=== PATIENT | female | born 1990 | race Hispanic/Latino ===

== ENCOUNTER 2024-06-08 14:16 | Inpatient (IN) | payer MEDICAID, OTHER ==
[2024-06-08 16:15] LABS: Bilirubin Neg (Negative); Blood, Urine Negative (Negative); Clarity Clear (Clear); Glucose, Urine (Dipstick) Normal (Negative); Ketone, Urine Negative (Negative); Leukocyte Negative (Negative); Nitrite Negative (Negative); Protein, Urine (Dipstick) Negative (Neg-Trace); Urobilinogen Normal mg/dL (Less than 2); pH, Urine 6.5 (5.0-9.0)
[2024-06-08 16:35] LABS: Bacteria/HPF Rare-Few HPF (None Seen); CAUTI Indications for Culture Pregnancy; RBC/HPF 0-3 HPF (0-3); Squamous Epithelial 0-3 HPF (0-3); WBC/HPF None Seen HPF (0-3)
[2024-06-08 16:36] LABS: Urine Culture Reflex Yes Yes
[2024-06-08] MEDS ORDERED: Diphenoxylate HCl/Atropine Tablet PO PRN (17:46)
[2024-06-08] MEDS ORDERED: Carboprost 250 MCG/ML AMP IM PRN (17:46)
[2024-06-08] MEDS ORDERED: Misoprostol 200 MCG TAB PR PRN (17:46)
[2024-06-08] MEDS ORDERED: Ibuprofen 800 MG TAB PO PRN (17:46)
[2024-06-08] MEDS ORDERED: hydrALAZINE 20 MG/ML VIAL SLOW IVP PRN (17:46)
[2024-06-08] MEDS ORDERED: Methylergonovine 0.2 MG/ML VIAL IM PRN (17:46)
[2024-06-08] MEDS ORDERED: Promethazine HCl 25 MG/ML VIAL IM PRN ×2 (17:46→19:49)
[2024-06-08] MEDS ORDERED: Tranexamic Acid 1,000 MG/10 ML VIAL IVP PRN (17:46)
[2024-06-08] MEDS ORDERED: Acetaminophen 500 MG TAB PO PRN (17:46)
[2024-06-08] MEDS ORDERED: Ondansetron PF 4 MG/2 ML Vial IVP PRN ×2 (17:46→19:49)
[2024-06-08] MEDS ORDERED: Lidocaine 1% (PF) 30 ML VIAL SC PRN (17:46)
[2024-06-08] MEDS ORDERED: Oxytocin 30 units/NS 500 ML 500 ML IV SCH ×2 (18:00)
[2024-06-08 18:49] LABS: Hematocrit 36.1 % (34.9-44.5); Hemoglobin 12.3 g/dL (12.0-15.5); Mean Corpuscular HGB CONC 34.1 g/dL (32.0-36.0); Mean Corpuscular Hemoglobin 30.8 pg (27.0-33.0); Mean Corpuscular Volume 90.3 fL (81.6-98.3); Mean Platelet Volume 11.2 fL (7.4-10.4); Platelet Count 201 10x3/uL (150-450); RBC Distribution Width 13.4 % (11.5-14.5); White Blood Cell (WBC) Count 6.48 10x3/uL (3.5-10.5)
[2024-06-08] MEDS: Penicillin G Potassium 5 MILL.UNITS in Sodium Chloride 0.9% 100 ML IVPB SCH (18:55)
[2024-06-08 19:11] VITALS: BMI 27.8
[2024-06-08] MEDS: fentaNYL/Ropivacaine Epidural 100 ML ONE (19:28)
[2024-06-08] MEDS ORDERED: ePHEDrine Sulfate 50 MG/10 ML VIAL SLOW IVP PRN (19:49)
[2024-06-08] MEDS ORDERED: diphenhydrAMINE 50 MG/ML VIAL IVP PRN (19:49)
[2024-06-08] MEDS ORDERED: Acetaminophen 325 MG TAB PO PRN (19:49)
[2024-06-08] MEDS ORDERED: Moisturizing Cream (Eucerin) 113 GM JAR TOP PRN (19:49)
[2024-06-08] MEDS ORDERED: Naloxone HCl 0.4 mg/ml Vial IVP PRN ×2 (19:49)
[2024-06-08] MEDS ORDERED: Lactated Ringer's 500 ML IV PRN (19:49)
[2024-06-08] MEDS ORDERED: Communication Order-Pharmacy FS SCH (20:00)
[2024-06-08] MEDS ORDERED: fentaNYL 2 mcg/Ropivacaine 0.2% Epidural 100 ML CADD EPIDURAL SCH (20:00)
[2024-06-08 20:58] LABS: Hep B Surf Ag - L&D Non-Reactive S/CO (NonReactive)
[2024-06-08 20:59] LABS: Syphilis Antibody Nonreactive (Nonreactive); Syphilis Antibody Index 0.06 S/CO (<1.00 Non-Reactive)
[2024-06-08] MEDS: Penicillin G 2.5 MILL.units 2.5 MILL.UNITS in Premix 1 BAG IVPB SCH (22:48)
[2024-06-09] MEDS ORDERED: Bisacodyl 10 MG SUPP PR PRN (01:08)
[2024-06-09] MEDS ORDERED: Milk Of Magnesia 30 ML UDCUP PO PRN (01:08)
[2024-06-09] MEDS ORDERED: Boostrix 0.5 ML (Tdap) VIAL (>/=7 yrs of age) IM ONE (01:08)
[2024-06-09] MEDS: Ibuprofen 800 MG TAB PO SCH (05:18)
[2024-06-09] MEDS: Docusate 100 MG CAP PO SCH (08:45)
[2024-06-09] MEDS: metroNIDAZOLE 500 MG TAB PO SCH (08:45)
[2024-06-09] MEDS: Ferrous Sulfate 325 MG TAB PO SCH (12:56)
[2024-06-09] MEDS ORDERED: Bupivacaine 0.25% HCL 30 ML VIAL ONE (14:00)
[2024-06-09] MEDS ORDERED: Bupivacaine HCl 0.5%/Epinephrine 1:200,000/PF 30 ml Vial ONE (14:00)
[2024-06-10 11:31] VITALS: BP 99/62; TEMP 98.2
== END 2024-06-10 14:55 | disposition home or self-care (01) | DRG 805 ==
LOC: CSHLD/OP 14:16 → CSHLD 19:01 → CSHPP 06-09 02:15
PROVIDERS: ADMIT Obstetrics & Gynecology; ATTEND Obstetrics & Gynecology
PROC: 10907ZC Drainage of Amniotic Fluid, Therapeutic from Products of Conception, Via Natural or Artificial Opening (ICD-10-PCS; 2024-06-08)
PROC: 10E0XZZ Delivery of Products of Conception, External Approach (ICD-10-PCS; principal; 2024-06-09)
DX: O36.8130 Decreased fetal movements, third trimester, not applicable or unspecified (principal); O75.3 Other infection during labor; Z37.0 Single live birth; O99.824 Streptococcus B carrier state complicating childbirth; Z3A.36 36 weeks gestation of pregnancy; N90.7 Vulvar cyst; B96.89 Other specified bacterial agents as the cause of diseases classified elsewhere
CPT/HCPCS: 51702; 76815; 81001; 85027; 86780; 86850; 86900; 86901; 87077; 87086; 87340; 87480; 87510; 87660; 99285; J0665; J2540